=== PATIENT | male | born 1985 | race American Indian/Alaskan Native ===

== ENCOUNTER 2020-11-17 17:18 | Emergency (ER) | payer SELFPAY ==
--- NOTE | 2020-11-17 17:48 | CR ---
PROCEDURE INFORMATION: Exam: XR Right Forearm Exam date and time: 11/17/2020 5:30 PM Age: 35 years old Clinical indication: Injury or trauma; Fall; Blunt trauma (contusions or hematomas); Arm, lower; Right; Additional info: Ladder fell onto right forearm TECHNIQUE: Imaging protocol: XR Right forearm. Views: 2 views. COMPARISON: No relevant prior studies available. FINDINGS: Bones/joints: No acute fracture. No dislocation. Normal bone mineralization. No joint effusion. Joint spaces are maintained. Soft tissues: No soft tissue swelling. No radiopaque foreign body. IMPRESSION: No acute fracture. Followup imaging recommended in 7-14 days if clinical concern for fracture persists.
--- NOTE | 2020-11-17 17:54 | EDM.PDOC ---
Scribed by Kecia Rodriguez 11/17/20 0893 for Brandan Mercado MD ED HPI GENERAL MEDICAL PROBLEM - General Chief Complaint: Upper Extremity Injury/Pain Stated Complaint: FELL OFF LADDER RIGHT ARM INJURY Time Seen by Provider: 11/17/20 17:25 Source of Information: Reports: Patient, RN, RN Notes Reviewed History Limitations: Reports: No Limitations - History of Present Illness INITIAL COMMENTS - FREE TEXT/NARRATIVE: Patient presents to ED by POV. He states a ladder he was working on fell and landed on his right arm yesterday. He took a Tylenol at 4 A.M. It is swollen and aches. Denies any other injury. Onset Date: 11/16/20 Duration: Constant Location: Reports: Upper Extremity, Right Quality: Reports: Ache Severity: Mild Improves with: Reports: None Worsens with: Reports: None Associated Symptoms: Reports: No Other Symptoms Right Lower Arm Pain Score (Numeric/FACES): 9 - Related Data Allergies Allergy/AdvReac Type Severity Reaction Status Date / Time No Known Allergies Allergy Verified 11/17/20 17:37 Home Meds: Home Meds . [No Known Home Meds] 11/17/20 [History] Past Medical History Psychiatric History: Reports: Addiction Social & Family History - Living Situation & Occupation Living situation: Reports: with Family Occupation: Employed Review of Systems - Review of Systems Review Of Systems: Comprehensive ROS is negative, except as noted in HPI. ED EXAM, GENERAL - Physical Exam Exam: See Below Exam Limited By: No Limitations General Appearance: Alert, WD/WN, No Apparent Distress Nose: Normal Inspection, Normal Mucosa, No Blood Throat/Mouth: Normal Inspection, Normal Lips, Normal Voice, No Airway Compromise Head: Atraumatic, Normocephalic Neck: Normal Inspection, Supple, Non-Tender, Full Range of Motion Respiratory/Chest: No Respiratory Distress, Lungs Clear, No Accessory Muscle Use, Chest Non-Tender Cardiovascular: Normal Peripheral Pulses, Regular Rate, Rhythm GI/Abdominal: Normal Bowel Sounds, Soft, Non-Tender Back Exam: Normal Inspection, Full Range of Motion. No: CVA Tenderness (L), CVA Tenderness (R), Vertebral Tenderness Extremities: Normal Capillary Refill, Arm Pain (Right forearm pain, no visible swelling, bruising, or deformity). No: Joint Swelling Neurological: Alert, Oriented, No Motor/Sensory Deficits Psychiatric: Normal Affect, Normal Mood Skin Exam: Warm, Dry, Intact, Normal Color, No Rash Course - Vital Signs Last Recorded V/S: Last Vital Signs Temp 96.7 F L 11/17/20 17:38 Pulse 69 11/17/20 17:38 Resp 16 11/17/20 17:38 BP 126/70 11/17/20 17:38 Pulse Ox 100 11/17/20 17:38 - Orders/Labs/Meds Orders: Active Orders 24 hr Category Date Time Status TAL Bandage [Elastic Wrap] [OM.PC] Routine Oth 11/17/20 17:53 Ordered DME for Discharge [COMM] Routine Oth 11/17/20 17:54 Ordered - Radiology Interpretation Free Text/Narrative:: [facility] Final Radiology Report Call: [phone] assistance Online chat: [email or web address] Name: HOUSTON LONGO Age: 35Years M Date: 11/17/2020 SSN: -- : 1985 Study: CR FOREARM 2V RT Requesting Physician: BRANDAN MERCADO Images: 2 Addl Studies: Provided Clinical History: Ladder fell onto right forearm Contrast: Contrast Medium: Contrast Amount: Contrast Method: CONFIDENTIALITY STATEMENT This report is intended only for use by the referring physician, and only in accordance with law. If you received this in error, call [phone]. Page 1 of 1 PROCEDURE INFORMATION: Exam: XR Right Forearm Exam date and time: 11/17/2020 5:30 PM Age: 35 years old Clinical indication: Injury or trauma; Fall; Blunt trauma (contusions or hematomas); Arm, lower; Right; Additional info: Ladder fell onto right forearm TECHNIQUE: Imaging protocol: XR Right forearm. Views: 2 views. COMPARISON: No relevant prior studies available. FINDINGS: Bones/joints: No acute fracture. No dislocation. Normal bone mineralization. No joint effusion. Joint spaces are maintained. Soft tissues: No soft tissue swelling. No radiopaque foreign body. IMPRESSION: No acute fracture. Followup imaging recommended in 7-14 days if clinical concern for fracture persists. Thank you for allowing us to participate in the care of your patient. Dictated and Authenticated by: Lissette Izaguirre MD 11/17/2020 5:48 PM Central Time ([place] & [place]) Departure - Departure Time of Disposition: 17:51 Disposition: Home, Self-Care 01 Condition: Good Clinical Impression: Contusion of right forearm, initial encounter - Discharge Information *PRESCRIPTION DRUG MONITORING PROGRAM REVIEWED*: Not Applicable *COPY OF PRESCRIPTION DRUG MONITORING REPORT IN PATIENT ATUL: Not Applicable Instructions: Contusion, How To Use a Sling, [id number] Forms: ED Department Discharge Additional Instructions: Wear TAL wrap and a sling as needed for comfort for the next 3 to 5 days. Use over the counter Ibuprofen (Motrin/Advil) or Tylenol (Acetaminophen) as needed for pain. Follow directions on label for dosing and precautions. Follow up in clinic in if not improving as expected in one week. Sepsis Event Note (ED) - Focused Exam Vital Signs: Vital Signs Temp Pulse Resp BP Pulse Ox 11/17/20 17:38 96.7 F L 69 16 126/70 100 - My Orders Last 24 Hours: My Active Orders 11/17/20 17:53 TAL Bandage [Elastic Wrap] [OM.PC] Routine 11/17/20 17:54 DME for Discharge [COMM] Routine - Assessment/Plan Last 24 Hours: My Active Orders 11/17/20 17:53 TAL Bandage [Elastic Wrap] [OM.PC] Routine 11/17/20 17:54 DME for Discharge [COMM] Routine I have read and agree with the documentation that has been completed regarding this visit. By signing this record, I attest that the documentation was completed in my physical presence and is an accurate record of the encounter.
== END 2020-11-17 17:55 | disposition home or self-care (01) ==
LOC: DL.ED 17:18
DX: S50.11XA Contusion of right forearm, initial encounter (principal); W11.XXXA Fall on and from ladder, initial encounter
CPT/HCPCS: 73090-RT; 99282; 99283